=== PATIENT | female | born 1940 | race Caucasian/White ===

== ENCOUNTER → 2016-08-16 | Outpatient (CLI) | payer MEDICARE, OTHER ==
[~2016-08-16] MED LIST: ASPI-515 PO; CEPH-368 PO; DABI150C PO; DILT120T PO; DILT180T PO; HYDR25TA6 PO; METO100T5 PO; METO200T2 PO; SOTA120T26 PO; TERA5CAP3 PO
== END | disposition home or self-care (01) ==
LOC: RAD 10:34
PROVIDERS: ATTEND Internal Medicine Cardiovascular Disease
DX: R09.89 Other specified symptoms and signs involving the circulatory and respiratory systems (principal); I51.7 Cardiomegaly
CPT/HCPCS: 71010; 78582; A9540; A9558

== ENCOUNTER → 2016-11-10 | Outpatient (CLI) | payer MEDICARE, OTHER ==
[~2016-11-10] MED LIST changes: +BUDE10.2 INH; +FURO-93 PO; +OMEP40CA6 PO
== END | disposition home or self-care (01) ==
LOC: EDSTATUS 11:30 → CFH 11:32
PROVIDERS: ATTEND Family Medicine
DX: Z13.820 Encounter for screening for osteoporosis (principal); M48.50XD Collapsed vertebra, not elsewhere classified, site unspecified, subsequent encounter for fracture with routine healing; M85.88 Other specified disorders of bone density and structure, other site; Z78.0 Asymptomatic menopausal state
CPT/HCPCS: 77080

== ENCOUNTER → 2017-02-16 | Outpatient (CLI) | payer MEDICARE, OTHER ==
[~2017-02-16] MED LIST changes: +ALBU18HF INH; +POTA20TA89 PO; +TIOT18CA INH; +sotalol PO
[2017-02-16 11:59] LABS: BLOOD UREA NITROGEN 26 mg/dL (7-18)
[2017-02-16 12:03] LABS: ASPARTATE AMINO TRANSFERASE 13 U/L (15-37)
== END | disposition home or self-care (01) ==
LOC: STAR 10:34
PROVIDERS: ATTEND Surgery
DX: Z01.818 Encounter for other preprocedural examination (principal); K80.10 Calculus of gallbladder with chronic cholecystitis without obstruction
CPT/HCPCS: 36415; 80053

== ENCOUNTER 2017-02-21 10:29 | Day surgery (SDC) | payer MEDICARE, OTHER ==
[~2017-02-21] VITALS: Ht 167.6 cm; Wt 129.0 kg
[~2017-02-21 10:29] MED LIST changes: +BUPIVACAINE/PF 0.25% ONE; +EPINEPHRINE 1 MG/ML, 1ML ONE
[2017-02-21] MEDS ORDERED: PROMETHAZINE 25 MG/ML, 1ML IV PRN (11:00)
[2017-02-21] MEDS ORDERED: ONDANSETRON 2MG/ML, 2ML IVPush PRN (11:00)
[2017-02-21] MEDS ORDERED: HYDROmorphone 1 MG/ML, 1ML IV PRN (11:00)
[2017-02-21] MEDS ORDERED: METOPROLOL 1 MG/ML, 5ML IV PRN (11:00)
[2017-02-21] MEDS ORDERED: ALBUTEROL SULFATE 2.5 MG/3 ML NPPB PRN (11:00)
[2017-02-21] MEDS ORDERED: LABETALOL 5MG/ML, 20ML IV PRN (11:00)
[2017-02-21] MEDS ORDERED: ACETAMINOPHEN 325 MG TABLET PO PRN (11:00)
[2017-02-21] MEDS ORDERED: hydrALAzine 20 MG/ML, 1ML IV PRN (11:00)
[2017-02-21] MEDS ORDERED: OXYcodone 5 MG/5 ML ORAL.SOL UDC PO PRN (11:00)
[2017-02-21] MEDS ORDERED: EPHEDRINE 50 MG/ML, 1ML IVPush PRN (11:00)
[2017-02-21] MEDS ORDERED: SOTA120T26 PO (11:02)
[2017-02-21] MEDS ORDERED: LACTATED RINGERS 1,000 ML IV SCH (11:04)
[2017-02-21 11:05] VITALS: BP 137/81
[2017-02-21] MEDS ORDERED: FENTANYL PF 250 MCG/5ML ONE (11:15)
[2017-02-21] MEDS ORDERED: CEFOTETAN PMX 2GM/50ML 50 ML ONE (11:16)
[2017-02-21] MEDS ORDERED: PROPOFOL 10 MG/ML, 20ML ONE (11:16)
[2017-02-21] MEDS ORDERED: ROCURONIUM 10 MG/ML ONE ×2 (11:16→11:42)
[2017-02-21] MEDS ORDERED: SCOPOLAMINE 1MG PATCH TD ONE (11:30)
[2017-02-21] MEDS ORDERED: GLYCOPYRROLATE 0.2MG/1ML, 5ML ONE (11:42)
[2017-02-21] MEDS ORDERED: NEOSTIGMINE 1 MG/ML, 10ML ONE (11:42)
[2017-02-21] MEDS ORDERED: ONDANSETRON 2MG/ML, 2ML ONE (12:02)
[2017-02-21] MEDS ORDERED: DEXAMETHASONE 4 MG/ML, 1ML ONE (12:02)
[2017-02-21] MEDS ORDERED: ACETAMINOPHEN 650 MG/20.3 ML UDC ONE (12:57)
[2017-02-21] MEDS ORDERED: OXYcodone 5 MG/5 ML ORAL.SOL UDC ONE (12:57)
[2017-02-21] MEDS ORDERED: FENTANYL PF 100 MCG/2ML ONE ×2 (12:57→13:51)
[2017-02-21] MEDS: FENTANYL PF 100 MCG/2ML IV PRN ×5 (12:59→14:23)
[2017-02-21] MEDS ORDERED: ALBUTEROL SULFATE 2.5 MG/3 ML ONE (13:05)
[2017-02-21] MEDS ORDERED: MIDAZOLAM 1 MG/ML, 2ML ONE (13:12)
[2017-02-21] MEDS ORDERED: MIDAZOLAM 1 MG/ML, 2ML IVPush PRN (13:30)
[2017-02-21] MEDS ORDERED: LABETALOL 5MG/ML, 20ML ONE (14:02)
[2017-02-21 14:08] LABS: IS PT STATUS REG ER OR PRE ER? NO
[2017-02-21] MEDS ORDERED: hydrALAzine 20 MG/ML, 1ML ONE (14:08)
[2017-02-21] MEDS ORDERED: HYDROcodone/APAP 5/325 TABLET ONE (17:58)
[2017-02-21] MEDS ORDERED: HYDROcodone/APAP 5/325 TABLET PO PRN (18:00)
== END 2017-02-21 19:05 | disposition home or self-care (01) ==
LOC: OUT 10:29
PROVIDERS: ATTEND Surgery
DX: K80.12 Calculus of gallbladder with acute and chronic cholecystitis without obstruction (principal); Z87.891 Personal history of nicotine dependence
CPT/HCPCS: 36415; 47562; 84484; 88304; 93005; 94640; C1760; J0171; J0360; J1100; J2250; J2405; J2704; J2710; J3010; J3490; J7120; S0074; J7613

== ENCOUNTER → 2019-04-02 | Outpatient (CLI) | payer MEDICARE, OTHER ==
[~2019-04-02] MED LIST changes: -BUPIVACAINE/PF 0.25% ONE; -EPINEPHRINE 1 MG/ML, 1ML ONE; +OMEP40CA42 PO; -OMEP40CA6 PO
== END | disposition home or self-care (01) ==
LOC: CVU 13:53
PROVIDERS: ATTEND Nurse Practitioner Family
DX: I08.3 Combined rheumatic disorders of mitral, aortic and tricuspid valves (principal); I10 Essential (primary) hypertension; I47.2 Ventricular tachycardia; Z87.891 Personal history of nicotine dependence
CPT/HCPCS: 93306